=== PATIENT | male | born 1990 | race Hispanic/Latino ===

== ENCOUNTER 2018-10-13 11:53 | Emergency (ER) | payer SELFPAY ==
[2018-10-13] MEDS ORDERED: Ibuprofen 800 MG TAB ONE (12:33)
== END 2018-10-13 12:37 | disposition home or self-care (01) ==
LOC: ERS 11:53
DX: S16.1XXA Strain of muscle, fascia and tendon at neck level, initial encounter (principal); B35.3 Tinea pedis; X50.1XXA Overexertion from prolonged static or awkward postures, initial encounter
CPT/HCPCS: 99283

== ENCOUNTER 2023-09-16 10:50 | Emergency (ER) | payer SELFPAY | END 2023-09-16 12:11 | disposition home or self-care (01) | LOC: ERS 10:50 | DX: B35.3 Tinea pedis (principal) | CPT/HCPCS: 99283 ==